=== PATIENT | male | born 1995 | race African-American/Black ===

== ENCOUNTER 2019-07-30 01:15 | Emergency (ER) | payer MEDICAID, OTHER ==
[~2019-07-30] VITALS: Ht 172.7 cm; Wt 105.0 kg
[~2019-07-30 01:15] MED LIST: BENZ1TAB7; ZYDS20; depakote
[2019-07-30 01:26] VITALS: BP 139/92
[2019-07-30] MEDS ORDERED: QUETIAPINE FUMARATE 50MG TABLET PO SCH (02:15)
[2019-07-30 02:51] LABS: CHLORIDE 106 mEq/L (98-107)
[2019-07-30 02:55] LABS: BASOPHILS % 0.9 % (0.0-2.0); EOSINOPHILS % 1.6 % (0.0-5.0); HEMATOCRIT. 46.9 % (42.0-52.0); HEMOGLOBIN. 15.7 g/dL (14.0-18.0); LYMPHOCYTES % 36.1 % (20.0-50.0); MEAN CORPUSCULAR HEMOGLOBIN 27.2 pg (28.0-32.0); MEAN CORPUSCULAR VOLUME 81.1 fL (80.0-94.0); MEAN PLATELET VOLUME 9.8 fl (7.4-10.4); MONOCYTES % 7.4 % (2.0-8.0); PLATELET 309 x1000/uL (130-400); RED BLOOD CELL COUNT 5.78 mill/uL (4.7-6.1); RED CELL DISTRIBUTION WIDTH 14.4 % (11.6-14.6)
[2019-07-30 02:56] LABS: ETHANOL BLOOD < 10 mg/dL
== END 2019-07-30 02:56 | disposition home or self-care (01) ==
LOC: ER 01:15
DX: F23 Brief psychotic disorder (principal); Z63.79 Other stressful life events affecting family and household; Z86.59 Personal history of other mental and behavioral disorders; E11.9 Type 2 diabetes mellitus without complications; G40.909 Epilepsy, unspecified, not intractable, without status epilepticus; F12.90 Cannabis use, unspecified, uncomplicated
CPT/HCPCS: 36415; 80053; 80307; 80320; 80329; 85025; 99283; Z7610; G0480

== ENCOUNTER 2020-04-11 15:32 | Inpatient (IN) | payer MEDICAID, OTHER ==
[~2020-04-11] VITALS: Ht 172.7 cm; Wt 121.1 kg
[2020-04-11 18:28] LABS: BASOPHILS % 0.7 % (0.0-2.0); HEMATOCRIT. 45.6 % (42.0-52.0); HEMOGLOBIN. 14.7 g/dL (14.0-18.0); LYMPHOCYTES % 38.8 % (20.0-50.0); MEAN CORPUSCULAR HEMOGLOBIN 26.9 pg (28.0-32.0); MEAN CORPUSCULAR VOLUME 83.6 fL (80.0-94.0); MONOCYTES % 7.7 % (2.0-8.0); NEUTROPHILS % 50.8 % (40.0-76.0); PLATELET 243 x1000/uL (130-400); RED BLOOD CELL COUNT 5.46 mill/uL (4.7-6.1)
[2020-04-11 18:29] LABS: CHLORIDE 102 mEq/L (98-107)
[2020-04-11] MEDS ORDERED: ALBUTEROL (0.5%) 2.5MG/0.5ML NEB HHN ONE ×3 (18:30)
[2020-04-11] MEDS ORDERED: IPRATROPIUM BROMIDE (0.02%) 0.5MG/2.5ML NEB HHN ONE (18:30)
[2020-04-11 19:05] LABS: CHLORIDE 101 mEq/L (98-107)
[2020-04-11] MEDS ORDERED: HYDROCODONE/ACETAMINOPHEN 5/325MG TABLET PO PRN (22:15)
[2020-04-11] MEDS ORDERED: ONDANSETRON HCL 4MG/2ML INJ IV PRN (22:15)
[2020-04-11] MEDS ORDERED: ACETAMINOPHEN 325MG TABLET PO PRN (22:15)
[2020-04-11] MEDS ORDERED: MAGNESIUM/ALUMINUM HYDROXIDE/SIMETHICONE 30ML UDC PO PRN (22:15)
[2020-04-11] MEDS ORDERED: CLONIDINE 0.1MG TABLET PO PRN (22:15)
[2020-04-11] MEDS ORDERED: DOCUSATE SODIUM 100MG CAPSULE PO PRN (22:15)
[2020-04-11] MEDS: BUDESONIDE 0.5MG/2ML NEB HHN SCH (23:25)
[2020-04-12 03:53] LABS: BASOPHILS % 0.3 % (0.0-2.0); HEMATOCRIT. 45.9 % (42.0-52.0); HEMOGLOBIN. 14.9 g/dL (14.0-18.0); LYMPHOCYTES % 39.3 % (20.0-50.0); MEAN CORPUSCULAR HEMOGLOBIN 26.9 pg (28.0-32.0); MEAN CORPUSCULAR VOLUME 82.9 fL (80.0-94.0); MEAN PLATELET VOLUME 10.6 fl (7.4-10.4); MONOCYTES % 9.4 % (2.0-8.0); PLATELET 253 x1000/uL (130-400); RED BLOOD CELL COUNT 5.54 mill/uL (4.7-6.1); RED CELL DISTRIBUTION WIDTH 14.2 % (11.6-14.6)
[2020-04-12 03:57] LABS: CHLORIDE 104 mEq/L (98-107)
[2020-04-12 04:04] LABS: LDL CHOLESTEROL 75 mg/dL (5-100)
[2020-04-12 04:05] LABS: HDL CHOLESTEROL 26 mg/dL (40-59)
[2020-04-12 04:09] LABS: CREATINE KINASE MB FRACTION 2.6 ng/mL (0.5-3.6)
[2020-04-12 04:17] LABS: CREATINE KINASE 1622 IU/L (39-308)
[2020-04-12] MEDS: METHYLPREDNISOLONE SOD SUCC 40 MG/ML VIAL IV SCH ×3 (06:26→21:18)
[2020-04-12 09:24] VITALS: BP 106/64
[2020-04-12] MEDS ORDERED: METF-414 MT (09:30)
[2020-04-12] MEDS ORDERED: ARIP400S3 IM (10:21)
[2020-04-12] MEDS ORDERED: INFLUENZA VACCINE 05/PF 0.5 ML VIAL IM ONE (12:00)
[2020-04-12] MEDS: BLOOD SUGAR DIAGNOSTIC STRIP TEST SCH ×3 (12:18→19:39)
[2020-04-12] MEDS: ENOXAPARIN 30MG/0.3ML SYR SUBCUT SCH ×2 (12:22→21:18)
[2020-04-12] MEDS: INSULIN LISPRO 100 UNITS/ML SUBCUT SCH ×3 (12:23→20:20)
[2020-04-12] MEDS: BUDESONIDE 0.5MG/2ML NEB HHN SCH ×2 (12:53→21:45)
[2020-04-12] MEDS: IPRATROPIUM/ALBUTEROL 0.5-3(2.5)MG/3ML NEB NEB PRN (12:53)
[2020-04-12 16:14] LABS: CREATINE KINASE MB FRACTION 2.2 ng/mL (0.5-3.6)
[2020-04-12 17:12] LABS: CREATINE KINASE 1190 IU/L (39-308)
[2020-04-12] MEDS: MONTELUKAST SODIUM 10MG TABLET PO SCH (17:28)
[2020-04-12 20:00] VITALS: BP 133/79
[2020-04-12] MEDS ORDERED: INSULIN GLARGINE UD 100 UNITS/ML SYR SUBCUT SCH ×2 (22:00→23:00)
[2020-04-12 23:18] LABS: CLARITY URINE CLEAR (CLEAR); COLOR URINE YELLOW (YELLOW); KETONES URINE 3+ (NEGATIVE); LEUKOCYTE ESTERASE URINE NEGATIVE (NEGATIVE); NITRITE URINE NEGATIVE (NEGATIVE); OCCULT BLOOD URINE NEGATIVE (NEGATIVE); PROTEIN URINE NEGATIVE (NEGATIVE); SPECIFIC GRAVITY URINE 1.036 (1.005-1.030); UROBILINOGEN URINE 0.2 E.U./dL (0.2-1.0)
[2020-04-12 23:30] LABS: *AMPHETAMINES SCREEN URINE NEGATIVE (NEGATIVE); *BARBITURATES SCREEN URINE NEGATIVE (NEGATIVE); *BENZODIAZEPINES SCREEN URINE NEGATIVE (NEGATIVE); OPIATES URINE SCREEN NEGATIVE (NEGATIVE); PHENCYCLIDINE URINE SCREEN NEGATIVE (NEGATIVE)
[2020-04-12 23:32] LABS: METHADONE URINE SCREEN NEGATIVE (NEGATIVE)
[2020-04-12 23:33] LABS: *COCAINE SCREEN URINE NEGATIVE (NEGATIVE)
[2020-04-12 23:36] LABS: CANNABINOID URINE SCREEN NEGATIVE (NEGATIVE)
[2020-04-13] VITALS: BP 122/72
[2020-04-13 04:00] VITALS: BP 125/80
[2020-04-13] MEDS: BLOOD SUGAR DIAGNOSTIC STRIP TEST SCH ×4 (06:12→19:49)
[2020-04-13] MEDS: METHYLPREDNISOLONE SOD SUCC 40 MG/ML VIAL IV SCH ×2 (06:19→15:38)
[2020-04-13] MEDS: INSULIN LISPRO 100 UNITS/ML SUBCUT SCH ×4 (06:19→20:33)
[2020-04-13 08:00] VITALS: BP 100/70
[2020-04-13] MEDS: ENOXAPARIN 30MG/0.3ML SYR SUBCUT SCH ×2 (09:01→20:32)
[2020-04-13] MEDS: BUDESONIDE 0.5MG/2ML NEB HHN SCH ×2 (09:30→21:33)
[2020-04-13] MEDS ORDERED: BENZTROPINE MESYLATE 1MG TABLET PO SCH (11:00)
[2020-04-13 12:00] VITALS: BP 90/45
[2020-04-13] MEDS: METFORMIN HCL 500MG TABLET PO SCH ×2 (12:28→18:08)
[2020-04-13 16:00] VITALS: BP 138/94
[2020-04-13] MEDS ORDERED: PREDNISONE 20MG TABLET PO SCH (17:00)
[2020-04-13] MEDS: IPRATROPIUM/ALBUTEROL 0.5-3(2.5)MG/3ML NEB NEB PRN (17:30)
[2020-04-13] MEDS: MONTELUKAST SODIUM 10MG TABLET PO SCH (18:08)
[2020-04-13 20:00] VITALS: BP 135/81
[2020-04-13] MEDS ORDERED: OLANZAPINE 10MG TABLET PO SCH (21:00)
[2020-04-13] MEDS ORDERED: DIVALPROEX SODIUM 500MG ER TABLET PO SCH (21:00)
[2020-04-13] MEDS: IPRATROPIUM/ALBUTEROL 0.5-3(2.5)MG/3ML NEB HHN SCH (21:33)
[2020-04-13] MEDS ORDERED: INSULIN GLARGINE UD 100 UNITS/ML SYR SUBCUT SCH (22:00)
[2020-04-14] VITALS: BP 127/72
[2020-04-14] MEDS: IPRATROPIUM/ALBUTEROL 0.5-3(2.5)MG/3ML NEB HHN SCH (01:49)
== END 2020-04-14 02:10 | disposition left against medical advice (07) | DRG 133 ==
LOC: ER 15:32 → UNDOADMIN 22:10 → MICUSO 22:10 → 8WST 04-12 07:27
PROVIDERS: ADMIT Internal Medicine; ATTEND Internal Medicine
DX: J96.00 Acute respiratory failure, unspecified whether with hypoxia or hypercapnia (principal); J45.21 Mild intermittent asthma with (acute) exacerbation; G90.8 Other disorders of autonomic nervous system; Z53.29 Procedure and treatment not carried out because of patient's decision for other reasons; F17.210 Nicotine dependence, cigarettes, uncomplicated; R74.01 Elevation of levels of liver transaminase levels; E11.65 Type 2 diabetes mellitus with hyperglycemia; E66.9 Obesity, unspecified; T38.0X5A Adverse effect of glucocorticoids and synthetic analogues, initial encounter; Z82.49 Family history of ischemic heart disease and other diseases of the circulatory system; Z79.84 Long term (current) use of oral hypoglycemic drugs; Z68.41 Body mass index [BMI] 40.0-44.9, adult; Y92.89 Other specified places as the place of occurrence of the external cause
CPT/HCPCS: 36415; 71045; 80048; 80053; 80061; 80305; 81003; 82550; 82553; 82962; 83036; 83735; 84443; 84484; 85025; 90686; 93970; 99285; J1650; J1815; J2920; J7512; J7626

== ENCOUNTER 2022-03-09 03:52 | Emergency (ER) | payer MEDICAID ==
[~2022-03-09] VITALS: Ht 175.3 cm; Wt 74.0 kg
[~2022-03-09 03:52] MED LIST changes: +ARIP400S3 IM; +METF-414 MT
[2022-03-09 03:57] VITALS: BP 133/90
== END 2022-03-09 04:49 | disposition home or self-care (01) ==
LOC: ER 03:52
DX: E11.65 Type 2 diabetes mellitus with hyperglycemia (principal); F12.10 Cannabis abuse, uncomplicated; E11.9 Type 2 diabetes mellitus without complications; Z86.59 Personal history of other mental and behavioral disorders
CPT/HCPCS: 82962; 99283

== ENCOUNTER 2024-11-06 20:17 | Emergency (ER) | payer MEDICAID ==
[~2024-11-06] VITALS: Ht 172.7 cm; Wt 81.0 kg
[~2024-11-06 20:17] MED LIST changes: -BENZ1TAB7; +BENZ1TAB79
[2024-11-06 20:18] VITALS: TEMP 36.8; O2SAT 100
[2024-11-06] MEDS: SODIUM CHLORIDE 0.9% 1,000 ML IV ONE ×2 (20:38→22:59)
[2024-11-06 20:41] VITALS: BP 124/77; PULSE 56; RESP 18; O2SAT 98
[2024-11-06 21:08] LABS: BASOPHILS % 1.3 % (0.0-2.0); EOSINOPHILS % 2.1 % (0.0-5.0); HEMATOCRIT. 42.6 % (42.0-52.0); HEMOGLOBIN. 13.7 g/dL (14.0-18.0); MEAN CORPUSCULAR HGB CONC 32.2 g/dL (31.0-37.0); MEAN CORPUSCULAR VOLUME 83.8 fL (80.0-94.0); MEAN PLATELET VOLUME 9.7 fl (7.4-10.4); NEUTROPHILS % 51.6 % (40.0-76.0); PLATELET 226 x1000/uL (130-400); RED BLOOD CELL COUNT 5.08 mill/uL (4.7-6.1); WHITE BLOOD COUNT 6.6 x1000/uL (4.5-11.0)
[2024-11-06 21:23] LABS: CHLORIDE 104 mEq/L (98-107); SODIUM 139 mEq/L (136-145)
[2024-11-06 21:24] LABS: CARBON DIOXIDE 24 mEq/L (21-32)
[2024-11-06 21:25] LABS: CALCIUM 8.8 mg/dL (8.7-10.4)
[2024-11-06 21:30] LABS: UREA NITROGEN BLOOD 12 mg/dL (9-23)
[2024-11-06 21:49] LABS: GLUCOSE 407 mg/dL (70-105)
[2024-11-06 22:13] LABS: BETA HYDROXYBUTYRATE 0.2 mMol/L (0.0-0.3)
[2024-11-06] MEDS: INSULIN REGULAR (HUMULIN R) 1000UNITS/10ML VIAL SUBCUT ONE (22:59)
[2024-11-06] MEDS ORDERED: METF-414 MT (23:19)
[2024-11-06] MEDS: METFORMIN HCL 500MG TABLET PO ONE (23:47)
== END 2024-11-06 23:55 | disposition home or self-care (01) ==
LOC: ER 20:17
DX: E11.65 Type 2 diabetes mellitus with hyperglycemia (principal); F12.90 Cannabis use, unspecified, uncomplicated; Z79.84 Long term (current) use of oral hypoglycemic drugs; Z79.899 Other long term (current) drug therapy
CPT/HCPCS: 99283; 96360; 96361; 80048; 82010; 82962; 85025; 36415; 96372; J7030; J1815